=== PATIENT | female | born 1955 | race Caucasian/White ===

== ENCOUNTER 2017-11-02 21:04 | Emergency (ER) | payer OTHER, SELFPAY ==
[2017-11-03] MEDS ORDERED: Ziprasidone 20 MG VIAL ONE (00:32)
[2017-11-03] MEDS ORDERED: Lorazepam 2 MG/ML VIAL ONE (00:32)
[2017-11-03] MEDS ORDERED: Acetaminophen/Codeine 30-300mg Tablet ONE (00:32)
[2017-11-03] MEDS ORDERED: Sterile Water 10 ML ONE (00:32)
== END 2017-11-03 01:35 | disposition home or self-care (01) ==
LOC: ERS 21:04
DX: G20 Parkinson's disease (principal); I10 Essential (primary) hypertension; E03.9 Hypothyroidism, unspecified; F41.9 Anxiety disorder, unspecified; Z79.82 Long term (current) use of aspirin; Z86.73 Personal history of transient ischemic attack (TIA), and cerebral infarction without residual deficits; Z79.899 Other long term (current) drug therapy
CPT/HCPCS: 96372; A4216; J2060; J3486

== ENCOUNTER 2017-11-14 17:08 | Observation (INO) | payer BC, SELFPAY ==
--- NOTE | 2017-11-14 18:05 | RAD ---
RIGHT WRIST THREE VIEW 11/14/17 HISTORY: Fall. Pain. COMPARISON: None. FINDINGS: There is an impacted fracture of the distal radius as well as fracture through the lunate fossa with mild dorsal angulation. There is also a nondisplaced fracture of the ulnar styloid. Scapholunate inte rval is at the upper limits of normal. Moderate degenerative disease of the thumb carpometacarpal joints. IMPRESSION: 1. Impacted and mildly dorsally angulated distal radius fracture with interarticular extension a t the lunate fossa. 2. Mild displaced fracture of the ulnar styloid. POS: [facility]
[2017-11-14] MEDS ORDERED: HYDROcodone/Acetaminophen 5/325 mg Tablet ONE (21:53)
--- NOTE | 2017-11-14 22:19 | CT ---
CT BRAIN WITHOUT CONTRAST 11/14/17 HISTORY: Injury. COMPARISON: CT brain from 2013. FINDINGS: No acute territorial infarct or hemorrhage. No midline shift. Or mass effect. Ventricular size and e xtra-axial CSF spaces are normal. Old right lacunar infarct, similar. There is fluid filling of the left sphenoid sinus. IMPRESSION: 1. No acute intracranial abnormality. 2. Left sphenoid sinusitis. POS: [facility]
--- NOTE | 2017-11-14 22:23 | CT ---
CT CERVICAL SPINE WITHOUT CONTRAST 11/14/17 HISTORY: Injury. Trauma. Fall. COMPARISON: 2010. FINDINGS: there is fluid filling of the left sphenoid sinus. The odontoid process is intact. No acute fracture or malalignment. The paraspinal soft tissues are unremarkable. IMPRESSION: No acute fracture or malalignment. POS: [facility]
--- NOTE | 2017-11-14 22:45 | CT ---
CT LUMBAR SPINE WITHOUT CONTRAST 11/14/17 HISTORY: Fall. COMPARISON: None. FINDINGS: No acute fracture or malalignment of the lumbar spine. Moderate facet arthropathy L4-5 and L5-S1. Mil d right sided L4-5 neural foraminal narrowing and left L4-5 neural foraminal narrowing due to facet h ypertrophic arthropathy. Mild narrowing of the spinal canal at L4-5 due to broad based posterior disc protrusion and increased epidural fat. Moderate degenerative disease between the L4-5 spinous processes. [place] effect extrahepatic biliary system. Prior cholecystectomy. Aortic contour is nonaneurysmal. No hydronephrosis. IMPRESSION: No acute abnormality of the lumbar spine. POS: [facility]
[2017-11-14] MEDS ORDERED: Ondansetron ODT 4 MG TAB ONE (23:24)
[2017-11-14] MEDS ORDERED: Morphine 4 MG/ML VIAL ONE (23:24)
[2017-11-15 01:05] LABS: #Basophils 0.1 thou/uL (0.0-0.2); #Eosinphils 0.6 thou/uL (0.0-0.7); #Lymphocytes 2.5 thou/uL (1.20-3.40); #Monocytes 1.1 thou/uL (0.11-0.59); %Basophils 0.8 % (0.0-1.0); %Lymphocytes 22.3 % (21.0-51.0); %Monocytes 9.5 % (0.0-10.0); %Neutrophils 62.4 % (42.0-75.0); Hemoglobin 12.9 g/dL (12.0-16.0); Mean Corpuscular HGB CONC 33.9 g/dL (32.0-36.0); Mean Corpuscular Hemoglobin 30.8 pg (27.0-31.0); Mean Corpuscular Volume 90.8 fl (81.0-99.0); Mean Platelet Volume 7.6 fL (7.4-10.4); Platelet Count 191 thou/uL (130-400); RBC Distribution Width 11.9 % (11.5-14.5); Red Blood Cell (RBC) Count 4.18 mill/uL (4.20-5.40); White Blood Cell (WBC) Count 11.2 thou/uL (4.8-10.8)
[2017-11-15 01:23] LABS: ALT (SGPT) 33 U/L (8-55); AST (SGOT) 43 U/L (5-34); Albumin 3.7 g/dL (3.4-4.8); Alkaline Phosphatase 78 U/L (40-150); Anion Gap 15 mmol/L (10-20); BUN (Urea Nitrogen) 5 mg/dL (9.8-20.1); Bilirubin, Total 0.7 mg/dL (0.2-1.2); Calc. Creatinine Clearance 0 mL/min (70-130); Calcium 9.5 mg/dL (7.8-10.44); Carbon Dioxide 25 mmol/L (23-31); Chloride 100 mmol/L (98-107); Estimated GFR-MDRD 74; Globulin 3.3 g/dL (2.4-3.5); Glucose 120 mg/dL (80-115); Potassium 3.7 mmol/L (3.5-5.1); Sodium 136 mmol/L (136-145)
[2017-11-15 01:38] LABS: Bilirubin Negative (Negative); Blood, Urine Negative (Negative); Clarity CLEAR (Clear); Glucose, Urine (Dipstick) Negative (Negative); Leukocyte Negative (Negative); Nitrite Negative (Negative); Protein, Urine (Dipstick) Negative (Neg-Trace); Specific Gravity, Urine 1.015 (1.002-1.036)
[2017-11-15] MEDS ORDERED: Fentanyl 100 MCG/2 ML VIAL ONE ×4 (03:24→14:21)
[2017-11-15] MEDS ORDERED: Fentanyl 100 MCG/2 ML VIAL SLOW IVP PRN ×2 (03:29→03:30)
[2017-11-15] MEDS ORDERED: Ondansetron HCl/PF 4 MG/2 ML Vial IVP PRN ×3 (03:30→09:41)
[2017-11-15] MEDS ORDERED: Ondansetron ODT 4 MG TAB SL PRN (03:30)
[2017-11-15] MEDS ORDERED: Sodium Chloride 0.9% 1,000 ML IV SCH (03:30)
[2017-11-15] MEDS ORDERED: Acetaminophen 325 MG TAB PO PRN ×2 (03:30→09:41)
[2017-11-15] MEDS ORDERED: Mag-Al 1200 mg/1200 mg/30 ML UDCUP PO PRN (09:41)
[2017-11-15] MEDS ORDERED: Diabetic Tussin 200 MG/10 ML UDCUP PO PRN (09:41)
[2017-11-15] MEDS ORDERED: Benzonatate 100 MG CAP PO PRN (09:41)
[2017-11-15] MEDS ORDERED: cloNIDine 0.1 MG TAB PO PRN (09:41)
[2017-11-15] MEDS ORDERED: Calcium Carbonate 500 MG ChewTAB PO PRN (09:41)
[2017-11-15] MEDS ORDERED: HYDROcodone/Acetaminophen 5/325 mg Tablet PO PRN (09:41)
[2017-11-15] MEDS ORDERED: Loratadine 10 MG TAB PO PRN (09:41)
[2017-11-15] MEDS ORDERED: Senokot 8.6 MG TAB PO PRN (09:41)
[2017-11-15] MEDS ORDERED: Bisacodyl 5 MG TAB PO PRN (09:41)
[2017-11-15] MEDS ORDERED: hydrALAZINE 20 MG/ML VIAL SLOW IVP PRN (09:41)
[2017-11-15] MEDS ORDERED: traMADol HCl 50 MG TAB PO PRN (09:41)
[2017-11-15] MEDS ORDERED: Nitroglycerin 0.4 MG TAB (25 Tab Bottle) SL PRN (09:41)
[2017-11-15 11:41] LABS: CKMB 1.5 ng/mL (0-6.6); Troponin I Less than 0.010 ng/mL (< 0.028)
--- NOTE | 2017-11-15 11:58 | RAD ---
RADIOGRAPH OF CHEST SINGLE VIEW: INDICATION: Dizziness, URI. FINDINGS: There is prominence of the cardiac silhouette and pulmonary vasculature with mild patchy bibasilar op acities. There is no pneumothorax or significant effusion visualized. IMPRESSION: Mild edema. POS: [facility]
--- NOTE | 2017-11-15 12:39 | HP ---
DATE OF ADMISSION: 11/15/2017 PRIMARY CARE PHYSICIAN: Richard Barrett MD CHIEF COMPLAINT: Fall and dizziness after the fall. HISTORY OF PRESENT ILLNESS: Ms. Givens is a 62-year-old female with past medical history of hyperten diane, hypothyroidism, history of CVA in the right sided basal ganglia as well as hypothyroidism, who presented to the emergency room with above mentioned complaints. History is mainly obtained by the p alek and her daughter present in the room. They are both rather poor historian and it is difficult for me to ascertain as to exactly what happened. According to Ms. Givens around 2:00 p.m. yesterday, she was walking down the stairs and fell. She wa s badly bruised and after falling, she has been having some dizziness that did not go away. She is a lso currently on amoxicillin for possible bronchitis, which she describes it as a sore throat. Other than that she denies any prodrome. She has no loss of consciousness. She did not have any dizzines s prior to the fall. She denies any chest pain, shortness of breath, palpitation prior or after to t he fall. She has been in her usual health up until the fall happened. Since the fall, she has been having dizziness which has persisted. Upon presentation to the emergency room, she was hemodynamically stable with the blood pressure of 11 7/79, pulse of 76, temperature 99. She underwent general examination and imaging studies. Her wrist x-ray of the right hand shows impacted and dorsally angulated distal radius fracture with intraartic ular extension to the lunate fossa. A CT of the brain was also done, which showed sphenoid sinusitis , otherwise no abnormality. CT of the lumbar and cervical spine are unremarkable. Her serum atmospheric chemist les and blood work and urinalysis are unremarkable. It is not clear why she is being admitted to [facility] medical team, but orthopedics has been consulted overnight by the emergency room physician, who romeo hanley consult. Other than that, the patient denies any recent illnesses. She denies any nausea, vomiting, diarrhea, or abdominal pain. She denies any dysuria, frequency, urgency, hematuria. She denies any chest alexey n, orthopnea, PND. PAST MEDICAL HISTORY: As per the HPI. PAST SURGICAL HISTORY: Ovarian cyst removal, uterine biopsy x4 in the past, cholecystectomy. PSYCHIATRIC HISTORY: Anxiety. SOCIAL HISTORY: She is and lives with her family. No history of drug, tobacco, or alcohol a buse. CODE STATUS: FULL CODE. Discussed with the patient. FAMILY HISTORY: Muscular dystrophy in her mother. ALLERGIES: Include AZITHROMYCIN, CIPROFLOXACIN, DOXYCYCLINE, KEFLEX, AND IBUPROFEN. CURRENT MEDICATIONS: As per the ER records, Metoprolol Tartrate 100 mg b.i.d., prochlorperazine b.i. d. as needed for headache, levothyroxine 25 mcg daily, hydroxyzine 50 mg 4 times a day, lansoprazole 15 mg a day, cetirizine as needed, magnesium chloride twice a day, Tylenol as needed, aspirin 81 mg d aily, lisinopril 5 mg daily, pramipexole 0.125 mg daily, valium 10 mg every 8 hours p.r.n., Ultram 50 mg every 8 hour p.r.n., Robaxin 500 mg q. 12 hours, and amoxicillin starting on 11/12/2017. REVIEW OF SYSTEMS: The following complete review of systems was negative, unless otherwise mentioned in the HPI or below: Constitutional: Weight loss or gain, ability to conduct usual activities. Skin: Rash, itching. Eyes: Double vision, pain. ENT/Mouth: Nose bleeding, neck stiffness, pain, tenderness. Cardiovascular: Palpitations, dyspnea on exertion, orthopnea. Respiratory: Shortness of breath, wheezing, cough, hemoptysis, fever or night sweats. Gastrointestinal: Poor appetite, abdominal pain, heartburn, nausea, vomiting, constipation, or diarrh ea. Genitourinary: Urgency, frequency, dysuria, nocturia. Musculoskeletal: Pain, swelling. Neurologic/Psychiatric: Anxiety, depression. Allergy/Immunologic: Skin rash, bleeding tendency. It is negative except for those mentioned in the history and physical. LABORATORY DATA: Her CBC shows WBC is mildly elevated at 11.2 with no left shift. Otherwise unremar kable. Serum chemistries: Blood sugar 120, AST 43 otherwise unremarkable. Urinalysis unremarkable. CT scan of the brain by my review has no hemorrhage or infarction. Wrist x-ray by my review as per H PI with right radial fracture. CT scan of the lumbar and cervical spine have no acute articular abno rmalities. PHYSICAL EXAMINATION: VITAL SIGNS: Most recent vital signs include blood pressure 94/65, pulse of 70, respiration 16, temp erature 98, saturating 96% on 2 liters oxygen. She was initially 99% on room air. GENERAL: No acute distress. Awake, alert, and oriented x3, appears somewhat uncomfortable due the c ast on the wrist, otherwise no acute distress. HEENT: Mucous membrane is moist and pink. No oropharyngeal exudate or erythema. Head is normocepha lic, atraumatic. Pupils are equal and reactive to light and accommodation. NECK: Supple without any lymphadenopathy, JVD or bruit. CHEST: Clear to auscultation without any wheezing, rales or rhonchi. CARDIOVASCULAR: Rate and rhythm is regular without any murmur, rubs or gallops. ABDOMEN: Soft, nontender, nondistended with positive bowel sounds. EXTREMITIES: ALEKS wrap on the right upper extremity. She is able to wiggle her fingers on the right hand. Lower extremities are free of any cyanosis, clubbing, or edema. NEUROLOGIC: Nonfocal. SKIN: Free of any rashes or bruises. Feels warm and dry to touch. PSYCHIATRIC: Anxiety noticed. IMPRESSION AND PLAN: 1. Dizziness. The likely cause of dizziness is the fall. The patient did not have any prodrome of the dizziness prior to the fall. It can also be secondary to the sphenoid sinusitis. She has been t aking antibiotic for the last 3 days without improvement. I will upgrade her antibiotics and add nhung e p.r.n. meclizine for her dizziness symptoms. Given her history of cerebrovascular accident, she carlos s been admitted to stroke unit already. We will continue to monitor her symptoms and check orthostat ic as well as transthoracic echocardiogram. Please note that the patient had a normal cardiac cathet erization 1 year ago. We will provide her with gentle IV fluid hydration as the blood pressure has t rended down, possibly secondary to the pain medication. 2. Fall and wrist fracture. Orthopedics has been consulted. Further management per their recommend ation. 3. Hypertension. Currently her blood pressure is the lower side. We will hold her home medications and resume once able to tolerate. 4. History of cerebrovascular accident. 5. Code status: FULL CODE. Discussed with patient. 6. Deep venous thrombosis and gastrointestinal prophylaxis. 7. Hypothyroidism. Resume levothyroxine. DISPOSITION: The patient is currently being admitted under observation status to stoke unit for dizz iness after the fall with wrist fracture. Further management will depend upon her clinical course.
[2017-11-15 16:20] VITALS: BMI 29.9
[2017-11-15] MEDS: Meclizine HCl 12.5 MG TAB PO PRN (17:24)
--- NOTE | 2017-11-15 19:18 | CON ---
DATE OF CONSULTATION: 11/15/2017 HISTORY OF PRESENT ILLNESS: Ms. Givens is a 62-year-old right-handed white female who fell at home o nto her outstretched dominant right hand and wrist, had immediate pain in the right wrist. The patie nt states that she was dizzy before she fell and has been dizzy since then. She has a history of fib romyalgia. She had CVA in 1999 and 2012. She has hypertension, history of brain aneurysm, hypothyro idism, possibly Parkinson's. EMERGENCY DEPARTMENT COURSE: The patient had x-rays of the right wrist which showed comminuted dista l right radius fracture with a small fracture of the ulnar styloid. The patient was placed in a yenia r tong splint. She has no neurologic complaints in the right hand. PHYSICAL EXAMINATION: The splint is in good position. The patient is able to flex and extend her di gits. She has normal sensation in her right hand. IMPRESSION: Comminuted distal right radius fracture ([place] fracture). PLAN: I discussed with the patient and her family that the fractures are all in good alignment and t herefore did not require surgery. She needs to avoid any pushing, pulling or lifting with the right hand. Continue with the splint, keep the hand elevated and keep the right wrist clean, dry, and foll ow up in my office in 9 days.
[2017-11-15] MEDS ORDERED: HYDROcodone/Acetaminophen 10/325 mg Tablet PO PRN (20:24)
[2017-11-15] MEDS: Famotidine 20 MG TAB PO SCH (20:44)
[2017-11-15] MEDS: Amoxicillin/Potassium Clav 875 MG TAB PO SCH (20:44)
[2017-11-16] MEDS: HYDROcodone/Acetaminophen 10/325 mg Tablet PO PRN ×3 (01:24→11:45)
[2017-11-16 06:21] LABS: #Eosinphils 0.6 thou/uL (0.0-0.7); #Monocytes 0.6 thou/uL (0.11-0.59); #Neutrophils 2.9 thou/uL (1.40-6.50); %Basophils 0.5 % (0.0-1.0); %Eosinophils 10.5 % (0.0-10.0); %Monocytes 10.1 % (0.0-10.0); %Neutrophils 46.9 % (42.0-75.0); Hemoglobin 10.8 g/dL (12.0-16.0); Mean Corpuscular HGB CONC 33.5 g/dL (32.0-36.0); Mean Corpuscular Hemoglobin 30.9 pg (27.0-31.0); Mean Corpuscular Volume 92.2 fl (81.0-99.0); Mean Platelet Volume 7.9 fL (7.4-10.4); Platelet Count 133 thou/uL (130-400); RBC Distribution Width 11.8 % (11.5-14.5); Red Blood Cell (RBC) Count 3.49 mill/uL (4.20-5.40); White Blood Cell (WBC) Count 6.1 thou/uL (4.8-10.8)
[2017-11-16 06:45] LABS: Anion Gap 11 mmol/L (10-20); BUN (Urea Nitrogen) 4 mg/dL (9.8-20.1); Calc. Creatinine Clearance 114 mL/min (70-130); Calcium 8.5 mg/dL (7.8-10.44); Carbon Dioxide 27 mmol/L (23-31); Chloride 101 mmol/L (98-107); Estimated GFR-MDRD 86; Glucose 137 mg/dL (80-115); Potassium 3.3 mmol/L (3.5-5.1); Sodium 136 mmol/L (136-145)
[2017-11-16] MEDS: Amoxicillin/Potassium Clav 875 MG TAB PO SCH (08:06)
[2017-11-16] MEDS: Famotidine 20 MG TAB PO SCH (08:06)
[2017-11-16] MEDS ORDERED: FLUoxetine HCl 10 MG CAP PO SCH (09:00)
[2017-11-16] MEDS ORDERED: Enoxaparin Sodium 40 MG/0.4 ML SYRINGE SC SCH (09:00)
[2017-11-16] MEDS ORDERED: Cyanocobalamin (Vitamin B-12) 1,000 MCG TAB PO SCH (09:00)
[2017-11-16 11:33] VITALS: BP 157/89; TEMP 98.5
[2017-11-16] MEDS: Meclizine HCl 12.5 MG TAB PO PRN (13:05)
[2017-11-16] MEDS ORDERED: Pramipexole Di-HCl 0.125 MG TAB PO SCH (21:00)
[2017-11-16] MEDS ORDERED: Levothyroxine Sodium 25 MCG TAB PO SCH (21:00)
--- NOTE | 2017-11-16 22:20 | DIS ---
DATE OF ADMISSION: 11/15/2017 DATE OF DISCHARGE: 11/16/2017 CONDITION AT THE TIME OF DISCHARGE: Stable and improved. DISCHARGE DIAGNOSES: 1. Mechanical fall resulting in right radial fracture. 2. Dizziness secondary to sinusitis. 3. Chronic pain syndrome. 4. Narcotic seeking behavior. 5. Hypertension. 6. Hypothyroidism. 7. History of cerebrovascular accident. DISCHARGE MEDICATIONS: Remains same as the admission medication except for the new medication as fol lows: Augmentin 875 mg p.o. b.i.d. for 5 more days and Ultram 50 mg every 4 hours as needed, #30. CONSULTATIONS: Orthopedics, Dr. Jesus Robert. PROCEDURES: 1. X-ray of the wrist on the right side, which shows distal radial fracture. 2. CT scan of the brain, which showed chronic ischemic vessel changes without any acute changes. No hemorrhage or infarction. It showed left sphenoid sinusitis. 3. CT scan of the lumbar and cervical spine, which is unremarkable. Chest x-ray, which is unremarkable. PRIMARY CARE PHYSICIAN: Dr. Barrett. HISTORY OF PRESENT ILLNESS: Ms. Givens is a 62-year-old female who fell from the stairs at her house and was brought in by the family. She was found to have a radial fracture and Orthopedics was consu lted REASON FOR ADMISSION: Dizziness after the fall. Her initial workup as mentioned above was unremarka ble. She was admitted for further evaluation. HOSPITAL COURSE: The patient was found to have sphenoid sinusitis for which she was started on Augme ntin. Her vital signs are stable. Orthostatics were checked and were negative. Echocardiogram was done, the results are pending at this time. Dr. Robert from the Orthopedics team saw the patient and recommended medical management. The patien t has been provided with sharmila wrap, sling, and splint. FOLLOWUP: Follow up outpatient has been recommended. She has been referred, otherwise she has no ot her reason to stay in the hospital and medically is back to her baseline. The patient wanted prescriptions for narcotics, which were not provided as she has reportedly being r eferred by her primary care physician to pain medication doctors'. She also report that most of the pain medications do not work for her. She is referred back to her primary care physician to address chronic pain issues. PHYSICAL EXAMINATION: GENERAL: She was seen and examined prior to discharge. No acute distress. VITAL SIGNS: Stable. Blood pressure 157/89, saturating 95% on room air. No acute distress. CHEST: Clear to auscultation bilaterally. Rate rhythm is regular. NEUROLOGIC: Nonfocal. LABORATORY EXAMINATION: Respiratory viral panel shows rhinovirus. Urine culture is negative. CBC a nd serum chemistries were unremarkable. Her potassium was 3.3, which was replaced prior to discharge .
== END 2017-11-16 13:28 | disposition home or self-care (01) ==
LOC: ERS 17:08 → ERHOLD 11-15 00:31 → 2SE 11-15 15:40
PROVIDERS: ADMIT Internal Medicine; ATTEND Internal Medicine
DX: J32.3 Chronic sphenoidal sinusitis (principal); B97.89 Other viral agents as the cause of diseases classified elsewhere; R42 Dizziness and giddiness; S52.531A Colles' fracture of right radius, initial encounter for closed fracture; S52.611A Displaced fracture of right ulna styloid process, initial encounter for closed fracture; G89.4 Chronic pain syndrome; I10 Essential (primary) hypertension; E03.9 Hypothyroidism, unspecified; F41.9 Anxiety disorder, unspecified; M79.7 Fibromyalgia; I67.1 Cerebral aneurysm, nonruptured; Z86.73 Personal history of transient ischemic attack (TIA), and cerebral infarction without residual deficits; Z76.5 Malingerer [conscious simulation]; Z79.2 Long term (current) use of antibiotics; Z79.899 Other long term (current) drug therapy; Z88.1 Allergy status to other antibiotic agents; Z88.8 Allergy status to other drugs, medicaments and biological substances; Z90.49 Acquired absence of other specified parts of digestive tract; Z90.710 Acquired absence of both cervix and uterus; Z98.890 Other specified postprocedural states; W10.9XXA Fall (on) (from) unspecified stairs and steps, initial encounter
CPT/HCPCS: 29125; 36415; 70450; 71045; 72125; 72131; 80048; 80053; 81003; 82553; 84443; 84484; 85025; 87086; 87633; 93306; 96361; 96372; 96374; 96376; G0378; G8978-GP-CJ; G8979-GP-CI; J1650; J2270; J3010; Q0162